=== PATIENT | female | born 1990 | race Caucasian/White ===

== ENCOUNTER → 2022-01-15 | Outpatient (CLI) | payer OTHER ==
[~2022-01-15] MED LIST: BCP TD; CEFTIN500 MG PO; CIPRO 250MG TA250 MG PO; EUTHYROX150 MCG PO; FLOMAX 0.40.4 MG/CAP PO; LEVAQUIN 5500 MG/TA1 PO; LORTAB 5/500 501 TAB PO; MACROBID 1100 MG/CAP PO; METRONIDAZOLE500 MG PO; MOTRIN 600600 MG/TAB PO; NO HOME MEDICATIONS; NORCO 325 MG-51 TAB PO; OMNICEF 300MG300 MG PO; PHENERGAN W/CO120 M1 PO; PRENATAL MVI; PYRIDIUM 100MG100 MG PO; SYNTHROID0.137 MG PO; ZANTAC 150MG T150 MG PO; ZOFRAN ODT4 MG PO; ZOFRAN4 M1 PO
== END ==
LOC: ZCOL.LAB 17:48 → EDBD 17:48 → COL.LAB 17:48
DX: H60.391 Other infective otitis externa, right ear (principal)